=== PATIENT | male | born 1980 | race Caucasian/White ===

== ENCOUNTER → 2024-05-22 | Outpatient (CLI) | payer BC | LOC: LAB 17:00 → LAB SHORT 17:00 | DX: R31.29 Other microscopic hematuria (principal) | CPT/HCPCS: 87086 ==

== ENCOUNTER → 2024-12-04 | Outpatient (CLI) | payer BC | LOC: PLD 07:36 → LAB SHORT 07:36 | DX: K13.70 Unspecified lesions of oral mucosa (principal) | CPT/HCPCS: 88305; 88341; 88342 ==